=== PATIENT | male | born 1975 | race Caucasian/White ===

== ENCOUNTER 2017-08-10 06:13 | Emergency (ER) | payer MEDICAID ==
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
--- NOTE | 2017-08-10 08:38 | Diagnostic Imaging Report ---
Exam: Left foot. HISTORY: Pain Findings: Multiple views of left foot reviewed. The study demonstrates no evidence of fracture dislocation. There is no evidence of soft tissue swelling. IMPRESSION normal examination left foot.
== END 2017-08-10 07:20 | disposition home or self-care (01) ==
LOC: ER 06:13
DX: G62.9 Polyneuropathy, unspecified (principal); F17.210 Nicotine dependence, cigarettes, uncomplicated; Z90.49 Acquired absence of other specified parts of digestive tract
CPT/HCPCS: 99284; 96372; 73630; 36416; 82948; J1885; Z7502

== ENCOUNTER 2017-11-13 02:08 | Emergency (ER) | payer SELFPAY ==
--- NOTE | 2017-11-13 02:41 | ED Physician Chart ---
ED Chief Complaint/HPI - Patient Information Date Seen:: 11/13/17 Time Seen:: 02:30 Chief Complaint:: right lower quadrant abdominal pain and low back pain History of Present Illness:: Patient's had right lower quadrant pain and bilateral lower back pain for 3 days. No chills, fever, dysuria. No trauma. Allergies:: Allergies Allergy/AdvReac Type Severity Reaction Status Date / Time No Known Allergies Allergy Verified 08/10/17 06:29 Vitals:: Vital Signs - 8 hr 11/13/17 02:10 Temp 98.4 F HR 82 RR 18 BP 100/65 O2 Sat % 98 Historian:: Patient Review:: Nurse's Note Reviewed ED Review of Systems - Review of Systems General/Constitutional: No fever, Chills Skin: No skin lesions Head: No headache Eyes: No loss of vision ENT: No earache Neck: No neck pain, No swelling Cardio Vascular: No chest pain, No palpitations Pulmonary: SOB GI: No nausea, No vomiting, No diarrhea, Pain G/U: No dysuria Musculoskeletal: Back pain Endocrine: No polyuria, No polydipsia Psychiatric: No prior psych history, No depression, No anxiety, No suicidal ideation Hematopoietic: No bruising Allergic/Immuno: No urticaria Neurological: No syncope, No focal symptoms ED Past Medical History - Past Medical History Past Medical History: No significant medical hx Family History: None Social History: Smoker, No Alcohol Surgical History: Appendectomy Psychiatricy History: None Family Medical History - Family Member Mother History Unknown: Yes Hx Family Hypertension: Yes ED Physical Exam - Physical Examination General/Constitutional: Well-developed, well-nourished, No distress Head: Atraumatic Eyes: Lids, conjuctiva normal, PERRL Skin: Nl inspection, No rash, No skin lesions, No ecchymosis ENMT: External ears, nose nl, Lips, teeth, gums nl Neck: No nuchal rigidity, No mass Respiratory: Nl effort/Exclusion, Clear to Auscultation Cardio Vascular: RRR, No murmur, gallop, rubs, NL S1 S2 GI: Normal BS's Other GI comments:: Right lower quadrant tenderness : No CVA tenderness Extremities: Normal digits & nails Neuro/Psych: No focal deficits Misc: Normal back Other Misc comments:: Straight leg raising of 90 bilaterally ED Labs/Radiology/EKG Results - Lab Results Results: Laboratory Results - last 24 hr 11/13/17 11/13/17 02:35 02:45 WBC 5.6 RBC 5.34 Hgb 15.1 Hct 47.0 MCV 88.1 MCH 28.3 MCHC Differential 32.1 RDW 13.0 Plt Count 275 MPV 7.0 Neutrophils % 45.4 Lymphocytes % 34.2 Monocytes % 14.8 H Eosinophils % 4.6 Basophils % 4.6 H Urine Source [place] Urine Color YELLOW Urine Clarity CLEAR Urine pH 6.0 Ur Specific [place] 1.020 Urine Protein NEGATIVE Urine Glucose (UA) NEGATIVE Urine Ketones NEGATIVE Urine Blood NEGATIVE Urine Nitrate NEGATIVE Urine Bilirubin NEGATIVE Urine Urobilinogen 0.2 Ur Leukocyte Esterase NEGATIVE Urine RBC NONE SEEN Urine WBC NONE SEEN Ur Epithelial Cells NONE SEEN Urine Bacteria NONE SEEN ED Assessment - Assessment General Assessment: patient's pain is of a benign etiology; clinical impression is supported by lab tests which were normal ED Septic Shock - . Is Septic Shock (SBP<90, OR Lactate>4 mmol\L) present?: No - <6hrs of presentation: Vital Signs: Vital Signs - 8 hr 11/13/17 02:10 Temp 98.4 F HR 82 RR 18 BP 100/65 O2 Sat % 98 ED Reassessment (Disposition) - Reassessment Reassessment:: patient resting comfortably after the toradol IM Reassessment Condition:: Improved - Diagnosis Diagnosis:: musculoskeletal pain - Patient Disposition Discharge/Transfer:: Home Admitted to:: Med/Surg Condition at Disposition:: Stable, Unchanged
[2017-11-13 02:52] LABS: URINE MICROSCOPIC INDICATED? YES; URINE SOURCE MIDSTREAM
[2017-11-13 02:56] LABS: URINE BILIRUBIN NEGATIVE (NEGATIVE); URINE BLOOD NEGATIVE (NEGATIVE); URINE GLUCOSE (UA) NEGATIVE (NEGATIVE); URINE KETONE NEGATIVE (NEGATIVE); URINE LEUKOCYTE ESTERASE NEGATIVE (NEGATIVE); URINE NITRATE NEGATIVE (NEGATIVE); URINE PROTEIN NEGATIVE (NEGATIVE); URINE UROBILINOGEN 0.2 E.U./dL (0.2 - 1.0)
[2017-11-13 03:05] LABS: URINE CLARITY CLEAR (CLEAR); URINE COLOR YELLOW
[2017-11-13 03:05] LABS: BASOPHILE ABSOLUTE 0.1 Th/cumm (0-0.2); EOSINOPHILE ABSOLUTE 0.2 Th/cmm (0.1-0.4); HEMOGLOBIN 15.1 gm/dL (12-16); LYMPHOCYTE ABSOLUTE 1.9 Th/cmm (1.5-3.0); MEAN CELL VOLUME 88.1 fl (80-99); MEAN CORPUSCULAR HEMOGLOBIN 28.3 pg (26.0-30.0); MEAN CORPUSCULAR HGB CONC 32.1 pg (28.0-36.0); MONOCYTE ABSOLUTE 0.8 Th/cmm (0.3-1.0); NEUTROPHILE ABSOLUTE 2.4 Th/cmm (1.8-8.0); PLATELET COUNT 275 Th/cmm (150-400); RED BLOOD COUNT 5.34 Mil/cmm (4.30-5.70)
[2017-11-13 03:06] LABS: URINE BACTERIA NONE SEEN /hpf (NONE SEEN); URINE EPITHELIAL CELLS NONE SEEN /lpf (FEW); URINE RBC NONE SEEN /hpf (0-5); URINE WBC NONE SEEN /hpf (0-5)
[2017-11-13 03:22] LABS: WHITE BLOOD COUNT 5.6 Th/cmm (4.8-10.8)
[2017-11-13 03:23] LABS: % BASOPHILS 4.6 % (0.0-2.0); % EOSINOPHILS 4.6 % (0.0-5.0); % LYMPHOCYTES 34.2 % (20.0-50.0); % MONOCYTES 14.8 % (2.0-10.0); % NEUTROPHILS 45.4 % (40.0-80.0)
== END 2017-11-13 04:45 | disposition home or self-care (01) ==
LOC: ER 02:08
DX: R10.31 Right lower quadrant pain (principal); M54.5 Low back pain; F17.200 Nicotine dependence, unspecified, uncomplicated; Z90.49 Acquired absence of other specified parts of digestive tract
CPT/HCPCS: 99284; 96372; 36415; 85025; 81001; 85007; 85027; J1885; Z7502

== ENCOUNTER 2018-01-17 04:02 | Emergency (ER) | payer SELFPAY ==
[2018-01-17] MEDS ORDERED: Morphine Sulfate 2 mg/mL 1mL Syr IV STA (04:34)
[2018-01-17] MEDS ORDERED: Morphine Sulfate 2 mg/mL 1mL Syr ONE (04:35)
[2018-01-17] MEDS ORDERED: Sodium Chloride 0.9% 1,000 ML IV ONE (04:35)
[2018-01-17 04:44] LABS: % EOSINOPHILS 0.1 % (0.0-5.0); MONOCYTE ABSOLUTE 0.4 Th/cmm (0.3-1.0); NEUTROPHILE ABSOLUTE 5.7 Th/cmm (1.8-8.0)
[2018-01-17 04:47] LABS: % BASOPHILS 0.9 % (0.0-2.0); % LYMPHOCYTES 19.8 % (20.0-50.0); % MONOCYTES 5.8 % (2.0-10.0); % NEUTROPHILS 73.4 % (40.0-80.0); BASOPHILE ABSOLUTE 0.1 Th/cumm (0-0.2); HEMATOCRIT 46.2 % (41.0-60); HEMOGLOBIN 15.6 gm/dL (12-16); LYMPHOCYTE ABSOLUTE 1.5 Th/cmm (1.5-3.0); MEAN CELL VOLUME 85.7 fl (80-99); MEAN CORPUSCULAR HEMOGLOBIN 28.9 pg (26.0-30.0); MEAN CORPUSCULAR HGB CONC 33.7 pg (28.0-36.0); MEAN PLATELET VOLUME 7.4 fl; PLATELET COUNT 217 Th/cmm (150-400); RED CELL DISTRIBUTION WIDTH 14.4 % (11.5-20.0); WHITE BLOOD COUNT 7.7 Th/cmm (4.8-10.8)
[2018-01-17] MEDS ORDERED: cefTRIAXone 1 GM in Sodium Chloride 0.9% 50 ML IV ONE (04:47)
--- NOTE | 2018-01-17 04:47 | ED Physician Chart ---
ED Chief Complaint/HPI - Patient Information Date Seen:: 01/17/18 Time Seen:: 04:05 Chief Complaint:: Headaches History of Present Illness:: onset x 3 days of intermittent, dull, diffuse H/As, dizziness, vertigo, Facial pain, Left E/As, and paresthesias; pt denies trauma, LOC, ALOC, AMS, N/V, decreased activity, visual or gait changes, neck pain, weakness, cough, C/P, SOB , Abd. Pain, A/N/V/D/C, fever, chills, or urinary s/s; pt is eating and is urinating well; pt last urinated one hour [employer] Allergies:: Allergies Allergy/AdvReac Type Severity Reaction Status Date / Time No Known Allergies Allergy Verified 08/10/17 06:29 Vitals:: Vital Signs - 8 hr 01/17/18 04:05 Temp 97.3 F HR 84 RR 18 BP 110/67 O2 Sat % 97 Historian:: Patient, Family Member Review:: Nurse's Note Reviewed <Juan Sarabia - Last Filed: 01/17/18 05:20> - Patient Information Allergies:: Allergies Allergy/AdvReac Type Severity Reaction Status Date / Time No Known Allergies Allergy Verified 08/10/17 06:29 Vitals:: Vital Signs - 8 hr 01/17/18 04:05 Temp 97.3 F HR 84 RR 18 BP 110/67 O2 Sat % 97 <Cem Renee - Last Filed: 01/17/18 08:33> ED Review of Systems - Review of Systems General/Constitutional: No fever, No chills, No weight loss, No weakness, No diaphoresis, No edema, No loss of appetite Skin: No skin lesions, No rash, No bruising Head: Headache, No light-headedness Eyes: No loss of vision, No pain, No diplopia ENT: Earache, No nasal drainage, No sore throat, No tinnitus Neck: No neck pain, No swelling, No thyromegaly, No stiffness, No mass noted Cardio Vascular: No chest pain, No palpitations, No PND, No orthopnea, No edema Pulmonary: No SOB, No cough, No sputum, No wheezing GI: No nausea, No vomiting, No diarrhea, No pain, No melena, No hematochezia, No constipation, No hematemesis G/U: No dysuria, No frequency, No hematuria, No nacturia Musculoskeletal: No bone or joint pain, No back pain, No muscle pain Endocrine: No polyuria, No polydipsia Psychiatric: No prior psych history, No depression, No anxiety, No suicidal ideation, No homicidal ideation, No auditory hallucination, No visual hallucination Hematopoietic: No bruising, No lymphadenopathy Allergic/Immuno: No urticaria, No angioedema Neurological: No syncope, No focal symptoms, No weakness, No paresthesia, No headache, No seizure, No dizziness, No confusion, No vertigo <Juan Sarabia Last Filed: 01/17/18 05:20> ED Past Medical History - Past Medical History Obtainable: Yes Past Medical History: HTN Family History: HTN Social History: Smoker, Alcohol, No Drug Use, Surgical History: None Psychiatricy History: None Medication: Reviewed <Juan Sarabia Filed: 01/17/18 05:20> Family Medical History - Family Member Mother History Unknown: Yes Ethnicity: Hx Family Hypertension: Yes <Juan Sarabia Filed: 01/17/18 05:20> ED Physical Exam - Physical Examination General/Constitutional: Awake, Well-developed, well-nourished, Alert, No distress, GCS 15, Non-toxic appearing, Ambulatory Head: Atraumatic Eyes: Lids, conjuctiva normal, PERRL, EOMI Other Eyes comments:: PERRLA; Fundi: benign; EOMs: WNL Skin: Nl inspection, No rash, No skin lesions, No ecchymosis, Well hydrated, No lymphadenopathy ENMT: External ears, nose nl, Nasal exam nl, Lips, teeth, gums nl, Oropharynx nl , Tonsils nl Other ENMT comments:: Left Ear: TM: dull and Injected; TMJs: WNL Neck: Nontender, Full ROM w/o pain, No JVD, No nuchal rigidity, No bruit, No mass, No stridor Other Neck comments:: supple; no meningeal signs; no cervical tenderness Respiratory: Nl effort/Exclusion, Clear to Auscultation, No Wheeze/Rhonchi/Rales Cardio Vascular: RRR, No murmur, gallop, rubs, NL S1 S2, Carotid/Femoral/Distal pulses equal bilaterally GI: No tenderness/rebounding/guarding, No organomegaly, No hernia, Normal BS's, Nondistended, No mass/bruits, No McBurney tenderness, Rectum exam nl Other GI comments:: no pulsatile masses : No CVA tenderness Extremities: No tenderness or effusion, Full ROM, normal strength in all extremities, No edema, Normal digits & nails Neuro/Psych: Alert/oriented, DTR's symmetric, Normal sensory exam, Normal motor strength, Judgement/insight normal, Mood normal, Normal gait, No focal deficits Other Neuro/Psych comments:: no focal signs Misc: Normal back, No paraspinal tenderness <Juan Sarabia - Last Filed: 01/17/18 05:20> ED Labs/Radiology/EKG Results - Lab Results Comments:: Na+: 125; LFTs: Elevated - EKG Interpretations EKG Time:: 04:44 Rate & Rhythm: 87; NSR Comments:: non-specific st-t changes <Juan Sarabia - Last Filed: 01/17/18 05:20> - Lab Results Results: Laboratory Tests 01/17/18 01/17/18 01/17/18 04:30 04:30 04:30 WBC 7.7 RBC 5.40 Hgb 15.6 Hct 46.2 MCV 85.7 MCH 28.9 MCHC Differential 33.7 RDW 14.4 Plt Count 217 MPV 7.4 Neutrophils % 73.4 Lymphocytes % 19.8 L Monocytes % 5.8 Eosinophils % 0.1 Basophils % 0.9 PT 13.5 H INR 1.28 Sodium 125 L Potassium 3.7 Chloride 95 L Carbon Dioxide 20.2 L Anion Gap 13.5 BUN 11 Creatinine 1.0 Est GFR ( Amer) > 60.0 Est GFR (Non-Af Amer) > 60.0 BUN/Creatinine Ratio 11.0 Glucose 124 H Calcium 8.9 Total Bilirubin 0.4 AST 66 H ALT 67 H Alkaline Phosphatase 122 H Creatine Kinase 57 Troponin I B-Natriuretic Peptide Total Protein 7.1 Albumin 3.6 L Globulin 3.5 Albumin/Globulin Ratio 1.0 Triglycerides 98 Cholesterol 57 LDL Cholesterol Direct 37 L HDL Cholesterol 10 L Amylase Lipase 01/17/18 01/17/18 01/17/18 04:30 04:30 04:30 WBC RBC Hgb Hct MCV MCH MCHC Differential RDW Plt Count MPV Neutrophils % Lymphocytes % Monocytes % Eosinophils % Basophils % PT INR Sodium Potassium Chloride Carbon Dioxide Anion Gap BUN Creatinine Est GFR ( Amer) Est GFR (Non-Af Amer) BUN/Creatinine Ratio Glucose Calcium Total Bilirubin AST ALT Alkaline Phosphatase Creatine Kinase Troponin I 0.01 B-Natriuretic Peptide 9.0 Total Protein Albumin Globulin Albumin/Globulin Ratio Triglycerides Cholesterol LDL Cholesterol Direct HDL Cholesterol Amylase 35 Lipase 21 <Cem Renee - Last Filed: 01/17/18 08:33> ED Assessment - Assessment General Assessment: Patient complains of left ear pain and numbness of the forehead and occiput for last 6 days he has had a subjective fever. Patient has a history of hepatitis C. He smokes 5 cigarettes a day. Patient denies alcohol consumption. Physical examination patient's well-developed well-nourished no acute distress. Eyes pupils equal and reactive to light ears both tympanic membranes normal. Patient has tenderness both temporomandibular joints left more than right pain and temporomandibular joint pain with opening and closing his mouth. Patient has poor dental hygiene with several teeth missing. Neck supple; chest has clear symmetrical breath sounds; heart regular rhythm no murmur or extra sound; abdomen soft nontender no organomegaly <Cem Renee - Last Filed: 01/17/18 08:33> ED Septic Shock - . Is Septic Shock (SBP<90, OR Lactate>4 mmol\L) present?: No - <6hrs of presentation: Vital Signs: Vital Signs - 8 hr 01/17/18 04:05 Temp 97.3 F HR 84 RR 18 BP 110/67 O2 Sat % 97 <Juan Sarabia - Last Filed: 01/17/18 05:20> - <6hrs of presentation: Vital Signs: Vital Signs - 8 hr 01/17/18 04:05 Temp 97.3 F HR 84 RR 18 BP 110/67 O2 Sat % 97 <Cem Renee - Last Filed: 01/17/18 08:33> ED Reassessment (Disposition) - Reassessment Reassessment Condition:: Improved - Diagnosis Diagnosis:: Dx: Headaches; Earaches; Left Otitis Media; Vascular Cephalgia; Hyponatremia; Elevated LFTs <Juan Sarabia - Last Filed: 01/17/18 05:20> - Reassessment Reassessment:: Repeat sodium was 130. Patient has temporomandibular joint syndrome probably caused or at least exacerbated by his poor dental hygiene. Patient was encouraged to see a dentist as soon as possible. He is also instructed to take ibuprofen 200 mg 2 3-4 times per day. Diagnosis in his temporomandibular joint syndrome. - Aftercare/Follow up Instructions Aftercare/Follow-Up Instructions:: Refer to Discharge Instructions - Patient Disposition Discharge/Transfer:: Home Condition at Disposition:: Stable, Unchanged <Cem Renee - Last Filed: 01/17/18 08:33> ED Discharge Plan <Juan Sarabia - Last Filed: 01/17/18 05:20> <Cem Renee - Last Filed: 01/17/18 08:33> - Patient Disposition Additional Instructions: As tolerated.
[2018-01-17 04:51] LABS: ALBUMIN 3.6 gm/dL (4.2-5.5); ALKALINE PHOSPHATASE 122 U/L (34-104); ANION GAP 13.5 (7.0-16.0); BILIRUBIN,TOTAL 0.4 mg/dL (0.3-1.0); BUN - UREA NITROGEN 11 mg/dL (7-25); CALCIUM SERUM 8.9 mg/dL (8.6-10.3); CARBON DIOXIDE 20.2 mEq/L (21.0-31.0); CHLORIDE 95 mEq/L (98-107); CHOLESTEROL 57 mg/dL (<200); CREATININE KINASE 57 U/L (30-223); GFR AFRICAN-AMERICAN > 60.0 ml/min (>90); GFR NON AFRICAN-AMERICAN > 60.0 ml/min; GLUCOSE 124 mg/dL (70-105); HDL -HIGH DENSITY LIPOPROTEIN 10 mg/dL (23-92); POTASSIUM SERUM 3.7 mEq/L (3.5-5.1); SGOT 66 U/L (13-39); SGPT/ALT 67 U/L (7-52); SODIUM SERUM 125 mEq/L (136-145); TOTAL PROTEIN,SERUM 7.1 gm/dL (6.0-8.3); TRIGLYCERIDES 98 mg/dL (<150)
[2018-01-17 04:53] LABS: AMYLASE SERUM 35 U/L (29-103); LIPASE 21 U/L (11-82)
[2018-01-17 04:56] LABS: INR 1.28 (0.5-1.4); PROTHROMBIN TIME (TEST) 13.5 SECONDS (9.5-11.5)
[2018-01-17 07:51] LABS: BUN - UREA NITROGEN 11 mg/dL (7-25); CALCIUM SERUM 8.2 mg/dL (8.6-10.3); CARBON DIOXIDE 24.9 mEq/L (21.0-31.0); CHLORIDE 100 mEq/L (98-107); CREATININE - SERUM 0.9 mg/dL (0.7-1.3); GFR AFRICAN-AMERICAN > 60.0 ml/min (>90); GFR NON AFRICAN-AMERICAN > 60.0 ml/min; GLUCOSE 107 mg/dL (70-105); POTASSIUM SERUM 3.9 mEq/L (3.5-5.1); SODIUM SERUM 130 mEq/L (136-145)
--- NOTE | 2018-01-17 09:10 | Diagnostic Imaging Report ---
CT scan cervical spine HISTORY: Pain Total DLP equals 358 CTDI equals 21.7 Axial sections were obtained to the cervical spine. Additional sagittal and coronal reformatted images are provided. Mild degenerative changes with small spur formation noted about the endplates of C4, C5, C6. Alignment is normal. Disc spaces are maintained. No acute abnormalities. No fractures. IMPRESSION: 1. No acute abnormalities 2. Mild degenerative changes
--- NOTE | 2018-01-17 09:11 | Diagnostic Imaging Report ---
CT scan of the brain without contrast History: Headache Total DLP equals 766 CTDI equals 40.5 Axial sections were obtained from the base of the skull to the vertex. There is a normal ventricular system size. No focal parenchymal lesions are seen. No evidence of any mass effect or shift of midline structures. No extra-axial masses or abnormal fluid collections. Mucosal thickening is noted about the maxillary ethmoid, and to a lesser degree frontal sinus regions. Mucosal thickening also noted about the right sphenoid sinus area. Impression: 1. No acute intracerebral abnormalities 2. Mucosal thickening within the paranasal sinuses as noted above.
--- NOTE | 2018-01-17 09:13 | Diagnostic Imaging Report ---
Portable chest x-ray History: Cough Allowing for portable technique and a poor inspiration, the heart size is normal. No focal pulmonary parenchymal processes. No hilar or mediastinal abnormalities. Impression: No acute abnormalities.
--- NOTE | 2018-01-17 09:13 | Diagnostic Imaging Report ---
CT scan facial bones HISTORY: Pain Total DLP equals 422 CTDI equals 19.6 Axial sections were obtained through the facial bones. Additional sagittal and coronal reformatted images are provided. There is retention of normal bony margins about the orbits. No fractures. The zygomatic arches are intact. The pterygoid plates are intact. Nasal bones appear normal. No focal abnormalities about the mandible. Mucosal thickening noted within the maxillary, ethmoid, frontal, and sphenoid sinus regions. IMPRESSION: 1. No acute bony abnormalities 2. Mucosal thickening within the paranasal sinuses.
== END 2018-01-17 08:55 | disposition home or self-care (01) ==
LOC: ER 04:02
DX: E87.1 Hypo-osmolality and hyponatremia (principal); G44.1 Vascular headache, not elsewhere classified; H66.92 Otitis media, unspecified, left ear; I10 Essential (primary) hypertension; F17.210 Nicotine dependence, cigarettes, uncomplicated
CPT/HCPCS: 99285; 96365; 96375; 94760; 93005; 71045; 70450; 70486; 72125; 84484; 83880; 36415; 85025; 85610; 82150; 82550; 83690; 80053; 80061; 80048; J2270; J2405; J0696; J7030

== ENCOUNTER 2018-08-12 09:19 | Emergency (ER) | payer MEDICAID ==
[2018-08-12] MEDS ORDERED: Lactated Ringer 1,000 ML IV ONE ×2 (09:55→10:05)
[2018-08-12] MEDS ORDERED: cefTRIAXone 1 GM in Sodium Chloride 0.9% 50 ML IV ONE ×2 (10:01→10:05)
--- NOTE | 2018-08-12 10:13 | Diagnostic Imaging Report ---
CHEST X-RAY: AP view INDICATION: Shortness of breath, pneumonia COMPARISON: 01/17/2018 FINDINGS: Suboptimal lung volumes are noted. Slight increased interstitial lung markings are noted. There is no focal consolidation or pleural effusions The heart is normal in size. The osseous structures demonstrate no acute abnormalities. IMPRESSION: Slight increase interstitial lung markings, nonspecific. No focal consolidation identified. Note, mild emphysematous changes cannot be excluded.
[2018-08-12 10:22] LABS: % BASOPHILS 0.3 % (0.0-2.0); % EOSINOPHILS 7.1 % (0.0-5.0); % LYMPHOCYTES 25.3 % (20.0-50.0); % MONOCYTES 10.1 % (2.0-10.0); % NEUTROPHILS 57.2 % (40.0-80.0); EOSINOPHILE ABSOLUTE 0.5 Th/cmm (0.1-0.4); HEMATOCRIT 43.7 % (41.0-60); LYMPHOCYTE ABSOLUTE 1.9 Th/cmm (1.5-3.0); MEAN CELL VOLUME 85.5 fl (80-99); MEAN CORPUSCULAR HEMOGLOBIN 27.4 pg (26.0-30.0); MEAN CORPUSCULAR HGB CONC 32.1 pg (28.0-36.0); MONOCYTE ABSOLUTE 0.8 Th/cmm (0.3-1.0); NEUTROPHILE ABSOLUTE 4.4 Th/cmm (1.8-8.0); PLATELET COUNT 249 Th/cmm (150-400); RED BLOOD COUNT 5.12 Mil/cmm (4.30-5.70); RED CELL DISTRIBUTION WIDTH 14.1 % (11.5-20.0); WHITE BLOOD COUNT 7.6 Th/cmm (4.8-10.8)
[2018-08-12 10:34] LABS: ALB/GLOB RATIO 1.1 (1.0-1.8); ALBUMIN 3.7 gm/dL (4.2-5.5); ALKALINE PHOSPHATASE 115 U/L (34-104); ANION GAP 9.2 (7.0-16.0); BILIRUBIN,TOTAL 0.3 mg/dL (0.3-1.0); BUN - UREA NITROGEN 12 mg/dL (7-25); CALCIUM SERUM 8.8 mg/dL (8.6-10.3); CARBON DIOXIDE 24.7 mEq/L (21.0-31.0); CHLORIDE 106 mEq/L (98-107); CREATININE - SERUM 0.7 mg/dL (0.7-1.3); GFR AFRICAN-AMERICAN > 60.0 ml/min (>90); GFR NON AFRICAN-AMERICAN > 60.0 ml/min; GLUCOSE 98 mg/dL (70-105); MAGNESIUM 2.1 mg/dL (1.9-2.7); PHOSPHOROUS 2.3 mg/dL (2.5-5.0); POTASSIUM SERUM 3.9 mEq/L (3.5-5.1); SGOT 48 U/L (13-39); SGPT/ALT 70 U/L (7-52); SODIUM SERUM 136 mEq/L (136-145); TOTAL PROTEIN,SERUM 7.1 gm/dL (6.0-8.3)
[2018-08-12 11:12] LABS: INF A SCREEN POS FOR INF A; INF B SCREEN NEG FOR INF B
--- NOTE | 2018-08-12 11:52 | ED Physician Chart ---
ED Chief Complaint/HPI - Patient Information Date Seen:: 08/12/18 Time Seen:: 09:30 Chief Complaint:: cough & sob History of Present Illness:: cough & sob in a man who was supposed to be at work today. Allergies:: Allergies Allergy/AdvReac Type Severity Reaction Status Date / Time No Known Allergies Allergy Verified 08/10/17 06:29 Vitals:: Vital Signs - 8 hr 08/12/18 09:30 Temp 98.1 F HR 81 RR 22 BP 110/72 O2 Sat % 100 Historian:: Patient, Family Member Review:: Nurse's Note Reviewed ED Review of Systems - Review of Systems General/Constitutional: Fever, No chills, Weakness, No diaphoresis, No edema, No loss of appetite, Other (never took a temperature) Skin: No skin lesions, No rash, No bruising Head: No headache, No light-headedness Eyes: No loss of vision, No pain, No diplopia ENT: No earache, No nasal drainage, No sore throat, No tinnitus Neck: No neck pain, No swelling, No thyromegaly, No stiffness, No mass noted Cardio Vascular: No chest pain, No palpitations, No PND, No orthopnea, No edema Pulmonary: SOB, Cough, No wheezing, Other (rhonchi) GI: No nausea, No vomiting, No diarrhea, No pain, No melena, No hematochezia, No constipation, No hematemesis G/U: No dysuria, No frequency, No hematuria Musculoskeletal: No bone or joint pain, No back pain, No muscle pain Endocrine: No polyuria, No polydipsia Psychiatric: No prior psych history, No depression, No anxiety, No suicidal ideation Hematopoietic: No bruising, No lymphadenopathy Allergic/Immuno: No urticaria, No angioedema Neurological: No syncope, No focal symptoms, No weakness, No paresthesia, No headache, No seizure, No dizziness, No confusion, No vertigo ED Past Medical History - Past Medical History Obtainable: Yes Past Medical History: No significant medical hx Family Medical History - Family Member Mother History Unknown: Yes Ethnicity: Hx Family Hypertension: Yes ED Physical Exam - Physical Examination General/Constitutional: Awake, Well-developed, well-nourished, Alert, No distress, GCS 15, Non-toxic appearing, Ambulatory Other Gen/Cons comments:: eyes are slightly sunken in. Head: Atraumatic Eyes: Lids, conjuctiva normal, PERRL, EOMI Skin: Nl inspection, No rash, No skin lesions, No ecchymosis, Well hydrated, No lymphadenopathy ENMT: External ears, nose nl Neck: Nontender, No nuchal rigidity, No stridor Respiratory: Nl effort/Exclusion Other Respiratory comments:: rhonchi at both bases Cardio Vascular: RRR, No murmur, gallop, rubs, NL S1 S2 GI: No tenderness/rebounding/guarding, No organomegaly, No hernia, Normal BS's, Nondistended, No mass/bruits, No McBurney tenderness : No CVA tenderness Extremities: No tenderness or effusion, Full ROM, normal strength in all extremities, No edema, Normal digits & nails Neuro/Psych: Alert/oriented, Normal sensory exam, Normal motor strength Other Neuro/Psych comments:: refuses to wear a mask even though he is influenza positive. anti-social personality. Misc: Normal back, No paraspinal tenderness ED Labs/Radiology/EKG Results - Lab Results Results: Laboratory Tests 08/12/18 08/12/18 08/12/18 10:00 10:00 10:00 WBC 7.6 RBC 5.12 Hgb 14.0 Hct 43.7 MCV 85.5 MCH 27.4 MCHC Differential 32.1 RDW 14.1 Plt Count 249 MPV 7.0 Neutrophils % 57.2 Lymphocytes % 25.3 Monocytes % 10.1 H Eosinophils % 7.1 H Basophils % 0.3 Sodium 136 Potassium 3.9 Chloride 106 Carbon Dioxide 24.7 Anion Gap 9.2 BUN 12 Creatinine 0.7 Est GFR ( Amer) > 60.0 Est GFR (Non-Af Amer) > 60.0 BUN/Creatinine Ratio 17.1 Glucose 98 Whole Bld Lactic Acid 1.01 Calcium 8.8 Phosphorus 2.3 L Magnesium 2.1 Total Bilirubin 0.3 AST 48 H ALT 70 H Alkaline Phosphatase 115 H Total Protein 7.1 Albumin 3.7 L Globulin 3.4 Albumin/Globulin Ratio 1.1 Influenza A (Rapid) Influenza B (Rapid) 08/12/18 10:05 WBC RBC Hgb Hct MCV MCH MCHC Differential RDW Plt Count MPV Neutrophils % Lymphocytes % Monocytes % Eosinophils % Basophils % Sodium Potassium Chloride Carbon Dioxide Anion Gap BUN Creatinine Est GFR ( Amer) Est GFR (Non-Af Amer) BUN/Creatinine Ratio Glucose Whole Bld Lactic Acid Calcium Phosphorus Magnesium Total Bilirubin AST ALT Alkaline Phosphatase Total Protein Albumin Globulin Albumin/Globulin Ratio Influenza A (Rapid) POS FOR INF A H Influenza B (Rapid) NEG FOR INF B ED Assessment - Assessment General Assessment: CXR read by me. Bilateral lobar pneumonia. EKG from 12:03:20 p.m.: normal sinus rhythm; flipped t wave in AVR. patient was irritated that he couldn't be admitted to our hospital for insurance reasons. He will leave AMA and go to [facility]. ED Septic Shock - . Is Septic Shock (SBP<90, OR Lactate>4 mmol\L) present?: No - <6hrs of presentation: Vital Signs: Vital Signs - 8 hr 08/12/18 09:30 Temp 98.1 F HR 81 RR 22 BP 110/72 O2 Sat % 100 ED Reassessment (Disposition) - Reassessment Reassessment Condition:: Improved - Diagnosis Diagnosis:: Bilateral lobar pneumonia Influenza a positive Low phosphorous Elevated liver function tests. Amphetamine usage. - Aftercare/Follow up Instructions Medication Prescribed:: none since patient is leaving AMA. - Patient Disposition Discharge/Transfer:: Against Medical Advice Condition at Disposition:: Stable, Improved
[2018-08-12 12:13] LABS: URINE SOURCE CLEAN C
[2018-08-12 12:15] LABS: URINE BILIRUBIN NEGATIVE (NEGATIVE); URINE BLOOD NEGATIVE (NEGATIVE); URINE GLUCOSE (UA) NEGATIVE (NEGATIVE); URINE KETONE NEGATIVE (NEGATIVE); URINE LEUKOCYTE ESTERASE NEGATIVE (NEGATIVE); URINE NITRATE NEGATIVE (NEGATIVE); URINE PROTEIN NEGATIVE (NEGATIVE); URINE UROBILINOGEN 0.2 E.U./dL (0.2 - 1.0)
[2018-08-12 12:40] LABS: AMPHETAMINE URINE POSITIVE (NEGATIVE); BARBITURATES URINE NEGATIVE (NEGATIVE); BENZODIAZEPINES QUAL URINE NEGATIVE (NEGATIVE); CANNABINOID THC NEGATIVE (NEGATIVE); COCAINE METABOLITE QUAL URINE NEGATIVE (NEGATIVE); METHADONE URINE NEGATIVE (NEGATIVE); METHAMPHETAMINES QUAL URINE NEGATIVE (NEGATIVE); OPIATES (MORPHINE) QUAL. URINE NEGATIVE (NEGATIVE); PHENCYCLIDINE (PCP) URINE NEGATIVE (NEGATIVE); TRICYCLICS (TCA) QUAL. URINE NEGATIVE (NEGATIVE)
[2018-08-12 12:45] LABS: URINE CLARITY CLEAR (CLEAR); URINE COLOR COLORLESS; URINE MICROSCOPIC INDICATED? NO
== END 2018-08-12 13:22 | disposition left against medical advice (07) ==
LOC: ER 09:19
DX: J18.1 Lobar pneumonia, unspecified organism (principal); J10.1 Influenza due to other identified influenza virus with other respiratory manifestations; F15.10 Other stimulant abuse, uncomplicated; E83.39 Other disorders of phosphorus metabolism; R94.5 Abnormal results of liver function studies
CPT/HCPCS: 99284; 96365; 96368; 96375; 93005; 71045; 84484; 36415; 85379; 83605; 80307; 87804 ×2; 85025; 81003; 80320; 83735; 84100; 80053; 87040 ×2; J1885; J0696; X6118; Z7502